=== PATIENT | male | born 1975 | race Caucasian/White ===

== ENCOUNTER 2016-07-06 13:04 | Emergency (ER) | payer OTHER ==
[~2016-07-06] VITALS: Ht 182.9 cm; Wt 82.0 kg
[2016-07-06] MEDS ORDERED: TYLENOL WITH C1 EACH PO (16:44)
[2016-07-06 17:11] VITALS: BP 136/95
== END 2016-07-06 17:13 | disposition home or self-care (01) ==
LOC: EME 13:04
DX: M25.561 Pain in right knee (principal); W18.30XA Fall on same level, unspecified, initial encounter; R56.9 Unspecified convulsions; I10 Essential (primary) hypertension; D64.9 Anemia, unspecified; Z87.891 Personal history of nicotine dependence
CPT/HCPCS: 73564; 99281; 99284